=== PATIENT | male | born 1950 | race Hispanic/Latino ===

== ENCOUNTER 2025-10-07 09:53 | Emergency (ER) | payer OTHER, MEDICARE ==
[~2025-10-07] VITALS: Ht 182.9 cm; Wt 118.4 kg
[~2025-10-07 09:53] MED LIST: ASPI-556 PO; IBUP-2482 PO; RANI-655 PO; SIMV10TA97 PO
[2025-10-07 09:55] VITALS: TEMP 97.6
[2025-10-07 10:39] LABS: APPEARANCE,URINE CLOUDY (CLEAR); GLUCOSE, URINE (UA) NEGATIVE (NEGATIVE); LEUKOCYTE ESTERASE ,URINE NEGATIVE Leu/uL (NEGATIVE); NITRATE,URINE NEGATIVE (NEGATIVE); OCCULT BLOOD,URINE +- (TRACE) (NEGATIVE)
[2025-10-07 10:40] LABS: ADD UA MICROSCOPIC YES
[2025-10-07 10:43] LABS: OTHER CASTS, URINE 3 /LPF (None Seen); SQUAMOUS EPITHELIAL CELL,UR FEW /HPF (0-2)
[2025-10-07 10:44] LABS: IMMATURE GRANULOCYTE ABSOLUTE 0.02 K/uL (0-1); NUCLEATED RED BLOOD CELLS 0.0 % (0.0-0.19); PLATELET COUNT (AUTO) 98 K/uL (130-400); RED BLOOD CELL COUNT(AUTO) 4.17 MIL/uL (4.50-6.20); RED CELL DISTRIBUTION WIDTH 16.4 % (11.0-15.5); WHITE BLOOD COUNT (AUTO) 3.9 K/uL (4.8-10.8)
[2025-10-07 10:49] LABS: CREATININE 1.0 mg/dL (0.5-1.3); GLOMERULAR FILTR. RATE CALC 79.0 mL/min (>90); GLUCOSE,RANDOM 110.0 mg/dL (70-105); SODIUM SERUM 135.0 mmol/L (136-145); UREA NITROGEN, BLOOD 15.0 mg/dL (7-18)
--- NOTE | 2025-10-07 10:50 | NUR ---
U/S GD PARACENTESIS CANCELLED NO RADIOLOGIST TILL SATURDAY. NURSE JEAN PAUL NOTIFIED OF OUTCOME. ORDERED CANCELLED
--- NOTE | 2025-10-07 11:03 | ERN ---
ED Note History of Present Illness Stated Complaint: PARACENTESIS Chief Complaint: Abdominal Pain Time Seen by MD: 10:17 Time Seen by Midlevel: 10:20 Dictation: 75-year-old male coming in with complaints of abdominal distention, loss of appetite, dark stools for two weeks, shortness a breath on exertion. Patient states he does not have any history of liver cirrhosis, was being seen by Roberto begum, was given water pills for his ascites. However spouse states as of two weeks water pills have not helped. Allergies: Coded Allergies: No Known Allergies (Unverified Allergy, Unknown, 12/04/18) Home Meds Reported Medications Ibuprofen (Ibuprofen) 200 Mg Capsule, 200 MG PO AD, CAP 12/04/18 Ranitidine HCl (Ranitidine HCl) 75 Mg Tablet, 75 MG PO DAILY, TAB 12/04/18 Simvastatin (Simvastatin) 10 Mg Tablet, 10 MG PO HS, TAB 12/04/18 Aspirin (Aspir 81) 81 Mg Tablet.dr, 81 MG PO DAILY, TAB 12/04/18 Past Medical History Past Medical History: High Cholesterol, Liver Disease Additional Past Medical Hx: ASCITES, THYROID Surgical History: Other Surgical History Other: EYES Review of System Dictation Constitutional: Generalized body weakness with loss of appetite Eyes: Negative for injury, pain,redness, and discharge ENT: Negative for injury,pain or swelling Cardiovascular: Negative for chest pain, palpitations, and edema Respiratory: Negative for shortness of breath, cough, and wheezing, Abdomen/GI: Abdominal distention Back: Negative for injury and pain : Negative for injury, bleeding and discharge MS/Extremity: Negative for injury and deformity Skin: Negative for rash, and discoloration Neuro: Negative for headache, weakness, numbness, tingling, and seizure Psych: Negative for suicide ideation, homicidal ideation, and hallucinations Review of Systems: was completed Initial Vital Sign VS Vital Signs Date Time Temp Pulse Resp B/P (MAP) Pulse Ox O2 Delivery O2 Flow Rate FiO2 10/07/25 09:55 97.5 76 16 137/72 96 Room Air 0 10/07/25 10:24 21 Physical Exam Dictation General: awake, alert, NAD Head/Face: Normocephalic, atraumatic Eyes: PERRL, EOMI, vision at baseline ENT: oral cavity clear, TMs clear, no signs of infection Neck: Trachea midline, supple, no nuchal rigidity Cardiovascular: RRR, normal S1/S2, No MRGs, no JVD Respiratory: CTAB, no respiratory distress, No rales or wheezes Abdomen: Soft, nontender, distended ,decreased bowel sounds, no guarding or rebound. Skin: Warm, dry, normal turgor, no rash MS/Extremity: Pulses equal, no cyanosis, neurovascular intact, FROM , bilateral plus three pitting edema Neuro: COAx4, GCS 15, strength 5/5, CN 2-12 intact, normal cerebellar exam, normal gait, Psych: Normal behavior, mood, and affect normal Results (Laboratory/Radiology) Laboratory/Radiology Laboratory Tests Test 10/07/25 10:04 10/07/25 10:30 Urine Color DARK-YELLOW (YELLOW) Urine Appearance CLOUDY (CLEAR) H Urine pH 5.5 (5.0-8.0) Urine Specific [place] 1.033 (1.001-1.031) Urine Protein 30 mg/dL (NEGATIVE) H Urine Glucose (UA) NEGATIVE mg/dL (NEGATIVE) Urine Ketones NEGATIVE mg/dL (NEGATIVE) Urine Occult Blood +- (TRACE) (NEGATIVE) H Urine Nitrate NEGATIVE (NEGATIVE) Urine Bilirubin 0.5 mg/dL (NEGATIVE) H Urine Urobilinogen 6 mg/dL (0.2-1.0) H Urine Leukocyte Esterase NEGATIVE Aravind/uL Urine RBC 6-10 /HPF (0-1) H Urine WBC 2-5 /HPF (0-1) H Urine Squamous Epithelial Cells FEW /HPF (0-2) Urine Bacteria FEW /HPF (None Seen) Urine Other Casts 3 /LPF (None Seen) White Blood Count 3.9 K/uL (4.8-10.8) L Red Blood Count 4.17 MIL/uL (4.50-6.20) L Hemoglobin 14.3 g/dL (14.0-18.0) Hematocrit 42.3 % (42-54) Mean Corpuscular Volume 101.4 fL (79-99) H Mean Corpuscular Hemoglobin 34.3 pg (27.0-33.0) H Mean Corpuscular Hemoglobin Concent 33.8 g/dL (32.0-36.0) Red Cell Distribution Width 16.4 % (11.0-15.5) H Platelet Count 98 K/uL (130-400) L Mean Platelet Volume 10.0 fL (7.5-10.5) Immature Granulocyte % (Auto) 0.5 % (0-1) Neutrophils (%) (Auto) 66.0 % (40.0-77.0) Lymphocytes (%) (Auto) 17.7 % (21.0-51.0) L Monocytes (%) (Auto) 13.2 % (3.0-13.0) H Eosinophils (%) (Auto) 1.6 % (0.0-8.0) Basophils (%) (Auto) 1.0 % (0.0-5.0) Neutrophils # (Auto) 2.5 K/uL (1.8-7.7) Lymphocytes # (Auto) 0.7 K/uL (1.0-4.8) L Monocytes # (Auto) 0.5 K/uL (0.1-1.0) Eosinophils # (Auto) 0.06 K/uL (0.00-0.70) Basophils # (Auto) 0.04 K/uL (0.00-0.20) Absolute Immature Granulocyte (auto 0.02 K/uL (0-1) Nucleated Red Blood Cells 0.0 % (0.0-0.19) Prothrombin Time 14.7 SEC (9.6-11.6) H Prothromb Time International Ratio 1.44 (0.85-1.15) H Activated Partial Thromboplast Time 34.8 SEC (26.3-35.5) Sodium Level 135 mmol/L (136-145) L Potassium Level 3.8 mmol/L (3.5-5.1) Chloride Level 101 mmol/L (101-111) Carbon Dioxide Level 26 mmol/L (21-32) Blood Urea Nitrogen 15 mg/dL (7-18) Creatinine 1.0 mg/dL (0.5-1.3) Glomerular Filtration Rate Calc 79 mL/min (>90) Random Glucose 110 mg/dL (70-105) H Total Calcium 8.4 mg/dL (8.5-10.1) L Total Bilirubin 4.2 mg/dL (0.2-1.0) H Direct Bilirubin 2.1 mg/dL (0.0-0.3) H Aspartate Amino Transf (AST/SGOT) 43 U/L (10-37) H Alanine Aminotransferase (ALT/SGPT) 22 U/L (12-78) Alkaline Phosphatase 223 U/L (50-136) H B-Type Natriuretic Peptide 40 pg/mL (0-100) Total Protein 7.0 g/dL (6.0-8.3) Albumin 2.3 g/dL (3.5-5.0) L Labs Reviewed?: Yes EKG Comment: EKGs done at 10 17, sinus rhythm rate of 76. Left anterior fascicular block. No STEMI interpreted by ER MD Ultrasound Comment: [facility] [address] [place] [address] IMAGING REPORT Signed PATIENT: PARISH DE MR#: [id number] : 1950 SEX: M AGE: 75 LOCATION: [facility] ORDER [id number] STATUS: REG ER REPORT#: [id number] SERVICE 1155 REASON: ascites ORDERING PHYSICIAN: GERMAINE DALY CNP PROCEDURE: ABDOMEN - US ABDOMINAL COMPLETE EXAM: US Abdomen Limited, Evaluate for Ascites. CLINICAL HISTORY: ascites TECHNIQUE: Real-time ultrasound of the abdomen to evaluate for ascites. COMPARISON: None provided. FINDINGS: RIGHT UPPER QUADRANT: Gross amount of free fluid. LEFT UPPER QUADRANT: Gross amount of free fluid. RIGHT LOWER QUADRANT: Gross amount of free fluid. LEFT LOWER QUADRANT: Gross amount of free fluid. IMPRESSION: 1. Large amount of ascites throughout the abdomen. /[place] DICTATED BY: ROBERT WERNER Jr., MD DATE: 10/07/25 1352 ELECTRONICALLY SIGNED BY: ROBERT WERNER Jr., MD DATE: 10/07/25 1352 ED Course ED Course Orders Procedure Category Date Status Time Urinalysis Profile LAB 10/07/25 Complete 10:18 Cbc With Differential LAB 10/07/25 Complete 10:33 Basic Metabolic Panel LAB 10/07/25 Complete 10:33 12 Lead Ekg Tracing- EKG 10/07/25 Complete Technical 10:33 Chest 1vw RAD 10/07/25 Taken 10:33 B-Type Natriuretic LAB 10/07/25 Complete Peptide 10:33 Hepatic Function Panel LAB 10/07/25 Complete 11:35 Pt And Ptt LAB 10/07/25 Complete 11:35 Us Abdominal Complete US 10/07/25 Resulted 11:55 Vital Signs Date Time Temp Pulse Resp B/P (MAP) Pulse Ox O2 Delivery O2 Flow Rate FiO2 10/07/25 13:30 74 16 110/72 95 Room Air* 0 21 10/07/25 10:24 76 16 125/73 96 Room Air* 0 21 10/07/25 09:55 97.5 76 16 137/72 96 Room Air 0 Medical Decision Making MDM MDM: 75-year-old male coming in with complaints of abdominal distention, loss of appetite, dark stools for two weeks, shortness a breath on exertion. Patient states he does not have any history of liver cirrhosis, was being seen by Roberto begum, was given water pills for his ascites. However spouse states as of two weeks water pills have not helped.Chemistry shows leukocytopenia, thromb ocytopenia. Chemistry shows mild hyponatremia at 135.., normal electrolytes, normal kidney function. UA shows no evidence of urinary tract infection. Patient's vital signs are stable, I ordered a ultrasound-guided paracentesis this is the patient's 1st paracentesis , admit the patient for shortness a breath and exacerbation, ascites,new liver cirrohsis diagnosis [address] [place] [facility] [place] Labs and imaging. Accepted pt Differential diagnosis: Ascites, liver cirrhosis, fluid overload Rationale: Tests considered and ordered secondary to shared decision making include: labs, ECG and radiology Previous outside records reviewed: Old ER visits. Risk of complication and/or morbidity or mortality of patient management: None Medications-Per medication reconciliation Need for hospitalization: Patient does meet criteria for hospitalization. Need for emergency major/minor surgery: No There are no social concerns with this patient. Prescription drug management Prescriptions will include symptomatic care Patient's prior external medical records from other ER visits were reviewed by me as indicated. Prior testing and results from previous visits were reviewed. Prior tests were taken into account with medical decision making and resource utilization, independent historian/historians were used to obtain complete medical history. I independently interpreted the test that were performed, results were reviewed by me and considered findings on radiology if ordered. Medical management and examination interpretation discussions were had by me with other qualified healthcare professionals as indicated for the patient's care. DX & DISP Disposition: Transfer Decision to Admit Date: Oct 07, 2025 Decision to Admit Time: 14:08 Departure Impression: Primary Impression: Ascites Additional Impression: Dyspnea Condition: Stable Referrals: MAGDALENO PERKINS (PCP) I have reviewed the case, and I agree with, Diagnosis and Plan GERMAINE DALY CNP Oct 07, 2025 11:03
[2025-10-07 11:50] LABS: INR 1.44 (0.85-1.15)
[2025-10-07 11:53] LABS: ASPARTATE AMINOTRANSFERASE 43.0 U/L (10-37); TOTAL PROTEIN, SERUM 7.0 g/dL (6.0-8.3)
--- NOTE | 2025-10-07 12:05 | NUR ---
transfer request for interventional radiologist per Laurence Valdivia rn
--- NOTE | 2025-10-07 12:53 | HMCIMG ---
EXAM: US Abdomen Limited, Evaluate for Ascites. CLINICAL HISTORY: ascites TECHNIQUE: Real-time ultrasound of the abdomen to evaluate for ascites. COMPARISON: None provided. FINDINGS: RIGHT UPPER QUADRANT: Gross amount of free fluid. LEFT UPPER QUADRANT: Gross amount of free fluid. RIGHT LOWER QUADRANT: Gross amount of free fluid. LEFT LOWER QUADRANT: Gross amount of free fluid. IMPRESSION: 1. Large amount of ascites throughout the abdomen. /[place]
--- NOTE | 2025-10-07 13:24 | NUR ---
TRANSFER CALL PLACE TO [facility] [phone] SPOKE WITH CRYSTAL INTAKE NURSE INFORMATION PROVIDED AND WILL CALL BACK. KHANG PEREZ
--- NOTE | 2025-10-07 13:29 | EKG ---
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
[2025-10-07 13:30] VITALS: BP 110/72; PULSE 74; RESP 16; O2SAT 95
--- NOTE | 2025-10-07 14:42 | NUR ---
TRANSFER INTAKE NURSE CALL BACK WITH ACCEPTANCE AT [address] BOUBACAR SANCHEZ TO ROOM 1513 AND PRIMARY NURSE TO CALL REPORT TO [facility] [place] [phone] AND EMS WHEN READY. KHANG PEREZ
== END 2025-10-07 15:47 | disposition short-term general hospital (02) ==
LOC: EDH 09:53
DX: R18.8 Other ascites (principal); R06.00 Dyspnea, unspecified; E78.00 Pure hypercholesterolemia, unspecified; Z79.82 Long term (current) use of aspirin; Z79.899 Other long term (current) drug therapy
CPT/HCPCS: 36415; 71045; 76700; 80048; 80076; 81001; 83880; 85025; 85610; 85730; 93005; 99285